=== PATIENT | female | born 1980 | race African-American/Black ===

== ENCOUNTER → 2019-11-14 | Outpatient (CLI) | payer OTHER ==
[~2019-11-14] MED LIST: ESTROSTEP FE-21 EACH; FLEXERIL PO; LASIX 20 MG TAB20 MG; NAPROSYN500 MG PO
== END ==
LOC: LAB 14:47
PROVIDERS: ATTEND Anesthesiology
DX: Z01.818 Encounter for other preprocedural examination (principal); Z11.59 Encounter for screening for other viral diseases